=== PATIENT | male | born 1995 | race Caucasian/White ===

== ENCOUNTER → 2018-11-24 | Outpatient (REF) | payer OTHER ==
[2018-11-24 16:57] LABS: PLATELET COUNT, AUTOMATED 370 K/uL (150-450)
== END ==
PROVIDERS: ATTEND Nurse Practitioner Family
DX: R10.9 Unspecified abdominal pain (principal); R11.0 Nausea; R14.0 Abdominal distension (gaseous)
CPT/HCPCS: 82040; 82150; 82247; 82310; 82374; 82435; 82565; 82947; 83690; 84075; 84132; 84155; 84295; 84450; 84460; 84520; 85025